=== PATIENT | female | born 1940 | race Caucasian/White ===

== ENCOUNTER → 2019-07-14 | Outpatient (CLI) | payer MEDICARE ==
[2019-07-14 10:30] LABS: African American GFR (CKD) >90 (>60 ml/min/1.73 sqM); Blood Urea Nitrogen 18 mg/dL (7-17)
--- NOTE | 2019-07-14 13:54 | CT ---
EXAMINATION TYPE: CT abdomen pelvis w con DATE OF EXAM: 07/14/2019 COMPARISON: NONE HISTORY: 79-year-old female Breast cancer, right upper quadrant TECHNIQUE: Contiguous axial scanning of the abdomen and pelvis following administration of 100 ml Iso lizy 300 IV contrast. Delayed images through the kidneys and coronal/sagittal reconstructions perform ed. CT DLP: 418.10 mGycm Automated exposure control for dose reduction was used. FINDINGS: Right breast reconstruction is demonstrated, partially visualized. Heart normal size without pericard ial effusion. Some strandy atelectasis or scarring at the posterior right base. No pleural effusion. Hepatic cysts measure up to 2.8 cm. Roughly 4 tiny hepatic hypodensities of the right hepatic dome ar e too small for accurate CT characterization and likely represent cysts as well. No biliary ductal dilatation. Portal venous system is patent. Adrenal glands, spleen, and pancreas appear within normal limits. A number of subcentimeter hypodensities within the left greater than right kidneys too small for accu rate CT characterization, likely cortical cysts. Bilateral extrarenal pelves. No dilated small bowel, free fluid, or free air. No mesenteric or retroperitoneal lymphadenopathy. Mild to moderate stool in the left side of the colon. Redundant sigmoid colon with scattered mid to d istal sigmoid diverticulosis. No pericolonic inflammatory change. Wandering cecum projecting medially and located just below the liver. Bladder urine distended. Prominent metal hardware artifact related to the patient's left hip replacem ent limits visualization of some of the pelvic structures. Uterus anteverted. Right ovary not clearly visualized. Possible thick-walled 1.6 cm cystic lesion of the left ovary can be further evaluated wi th a pelvic ultrasound. No abnormal fluid collection in the pelvis or pelvic lymphadenopathy. Bones: Left hip total arthroplasty. Degenerative changes right hip. Cortical irregularity left sacral alar suggests prior insufficiency fracture. Degenerative changes throughout the lumbar spine with gr davion 1 anterolisthesis at L4-L5. Focal 8 mm lucent lesion within the left L4 vertebral body. IMPRESSION: 1. BENIGN HEPATIC CYSTS MEASURING UP TO 2.8 CM. APPROXIMATELY 4 TINY HYPODENSITIES ARE PRESENT ALONG THE RIGHT HEPATIC DOME AND ARE TOO SMALL FOR ACCURATE CT CHARACTERIZATION, LIKELY REPRESENTING CYSTS WELL. 2. MID TO DISTAL SIGMOID DIVERTICULOSIS. REDUNDANT SIGMOID COLON. NO ACUTE INFLAMMATION. 3. NONSPECIFIC 8 MM LUCENT LESION WITHIN THE LEFT L4 VERTEBRAL BODY COULD REPRESENT A SMALL INTRAOSSE OUS HEMANGIOMA. IF THERE IS CLINICAL SUSPICION FOR LYTIC METASTATIC DISEASE, SHORT INTERVAL FOLLOW-UP VERSUS PET CT COULD BE CONSIDERED. 4. POSSIBLE THICK-WALLED 1.6 CM CYSTIC LESION OF THE LEFT OVARY CAN BE FURTHER EVALUATED WITH PELVIC ULTRASOUND. 5. OLD LEFT SACRAL ALAR INSUFFICIENCY FRACTURE.
== END | disposition home or self-care (01) ==
LOC: RADCTMAIN 09:38
PROVIDERS: ATTEND Internal Medicine Hematology & Oncology
DX: K57.30 Diverticulosis of large intestine without perforation or abscess without bleeding (principal); K76.89 Other specified diseases of liver; C50.411 Malignant neoplasm of upper-outer quadrant of right female breast
CPT/HCPCS: 82565; 84520; 74177; 36415; Q9967

== ENCOUNTER → 2019-10-20 | Outpatient (CLI) | payer MEDICARE ==
--- NOTE | 2019-10-21 14:45 | US ---
EXAMINATION TYPE: US transvaginal DATE OF EXAM: 10/20/2019 COMPARISON: ct CLINICAL HISTORY: N83.0 Ovarian Cyst. Left ovarian cyst seen on CT TECHNIQUE: Transvaginal (TV) . Transvaginal sonographic images of the pelvis were acquired. Pt edinson ble to fill bladder to do TA. EXAM MEASUREMENTS: Uterus: 6.2 x 3.4 x 4.3 cm Endometrial Stripe: 0.4 cm 1. Uterus: Anteverted Heterogeneous with 2 solid masses 1)= Echogenic, 2.9 x 1.9 x 2.9 cm 2)= Hyp oechoic at fundus, 1.5 x 1.1 x 1.5 cm findings are likely related to uterine fibroids. 2. Endometrium: wnl for post menopausal 3. Right Ovary: Obscured by overlying bowel gas 4. Left Ovary: Obscured by overlying bowel gas 5. Bilateral Adnexa: wnl, prominent vessels left adnexa 6. Posterior cul-de-sac: wnl IMPRESSION: 1. Uterine fibroids
== END ==
LOC: RADUSWWP 16:10
PROVIDERS: ATTEND Obstetrics & Gynecology
DX: D25.9 Leiomyoma of uterus, unspecified (principal)
CPT/HCPCS: 76830

== ENCOUNTER 2022-08-28 15:41 | Observation (INO) | payer MEDICARE ==
[2022-08-28] MEDS ORDERED: DEXAMETHASONE SOD PHOSPHATE 10 MG/ML 1 ML VIAL IV STA (16:58)
--- NOTE | 2022-08-28 16:59 | ED ---
General Adult HPI - General Chief complaint: Upper Respiratory Infection Stated complaint: sob, COVID+ Time Seen by Provider: 08/28/22 15:50 Source: EMS Mode of arrival: EMS Limitations: altered mental status - History of Present Illness Initial comments: Dictation was produced using [employer] dictation software. please excuse any grammatical, word or spelling errors. Chief Complaint: 82-year-old female sent from primary care physician's office for hypoxia and COVID-19 pneumonia History of Present Illness: Patient is a 2-year-old female she presents to the emergency Department directly from primary care physician's office for the last 3 days she's had cold type symptoms. Patient is a and O 1 at baseline. She was seen at the primary care physician's office or she tests positive for COVID- 19. She is also to be hypoxic. Level hypoxia was not mentioned to me. PCP was also worried about bacterial pneumonia. Patient is a poor historian. History of present also obtained from nurse who received report from EMS and also pat wendi's and son at the bedside. The ROS documented in this emergency department record has been reviewed and confirmed by me. Those systems with pertinent positive or negative responses have been documented in the HPI. All other systems are other negative and/or noncontributory. PHYSICAL EXAM: General Impression: Alert and oriented x1/4, not in acute distress HEENT: Normocephalic atraumatic, extra-ocular movements intact, pupils equal and reactive to light bilaterally, mucous membranes moist. Cardiovascular: Heart regular rate and rhythm Chest: Able to complete full sentences, no retractions, no tachypnea Abdomen: abdomen soft, non-tender, non-distended, no organomegaly Musculoskeletal: Pulses present and equal in all extremities, no peripheral edema Motor: no focal deficits noted Neurological: CN II-XII grossly intact, no focal motor or sensory deficits noted Skin: Intact with no visualized rashes Psych: Normal affect and mood ED course: 82-year-old female Covid positive with hypoxia presents to the ER from PCPs office for further care. Signs upon arrival shows 92% on room air. Repeat oxygen levels 89%. Nursing notes and chart review was performed Family does not want patient to be admitted to our hospital due to Covid visitor restrictions. My EKG interpretation: Ventricular rate 83, sinus rhythm,. 124, QRS 86, QTC 470. No CT prolongation, no QTC prolongation, no ST or T-wave changes noted. . Overall, this EKG is unremarkable Spelled in her [facility] who is not accepting any transfers. I relayed this information to family who was agreeable at patient admitted to our facility. Laboratory evaluation obtained. CBC, coag panel, metabolic panel is unremarkable. Patient is positive for COVID-19. Chest x-ray shows mild pulmonary interstitial basilar infiltrates likely COVID-19. Patient be admitted to [facility]. Patient given Decadron. Patient needed for hypoxic respiratory failure secondary to COVID-19. - Related Data Home Medications Medication Instructions Recorded Confirmed Anastrozole 1 mg PO DAILY 08/28/22 08/28/22 Citalopram Hydrobromide [CeleXA] 20 mg PO DAILY 08/28/22 08/28/22 Levothyroxine Sodium [Synthroid] 50 mcg PO DAILY 08/28/22 08/28/22 Memantine [Namenda] 5 mg PO DAILY 08/28/22 08/28/22 Omeprazole [PriLOSEC] 20 mg PO DAILY 08/28/22 08/28/22 Oxybutynin Chloride [Ditropan] 5 mg PO DAILY 08/28/22 08/28/22 Simvastatin [Zocor] 40 mg PO HS 08/28/22 08/28/22 amLODIPine [Norvasc] 5 mg PO DAILY 08/28/22 08/28/22 traZODone HCL [Desyrel] 25 - 50 mg PO HS 08/28/22 08/28/22 Allergies Allergy/AdvReac Type Severity Reaction Status Date / Time No Known Allergies Allergy Verified 08/28/22 18:08 Review of Systems ROS Statement: Those systems with pertinent positive or pertinent negative responses have been documented in the HPI. ROS Other: All systems not noted in ROS Statement are negative. Past Medical History Past Medical History: Unable to Obtain History of Any Multi-Drug Resistant Organisms: None Reported Past Surgical History: Unable to Obtain Past Psychological History: Unable to Obtain Smoking Status: Unknown if ever smoked Past Alcohol Use History: Unable to Obtain Past Drug Use History: Unable to Obtain General Exam Limitations: altered mental status Course Vital Signs 08/28/22 08/28/22 08/28/22 15:54 16:19 16:45 Temperature 98.4 F Pulse Rate 81 Respiratory 18 18 Rate Blood Pressure 132/78 O2 Sat by Pulse 92 L 89 L Oximetry 08/28/22 08/28/22 17:11 19:19 Temperature Pulse Rate 68 Respiratory 16 Rate Blood Pressure O2 Sat by Pulse 97 97 Oximetry Medical Decision Making - Lab Data Result diagrams: 08/28/22 16:54 08/28/22 16:54 Lab Results 08/28/22 08/28/22 08/28/22 Range/Units 16:54 16:54 16:54 WBC 13.0 H (3.8-10.6) k/uL RBC 4.47 (3.80-5.40) m/uL Hgb 13.7 (11.4-16.0) gm/dL Hct 39.6 (34.0-46.0) % MCV 88.6 (80.0-100.0) fL MCH 30.6 (25.0-35.0) pg MCHC 34.6 (31.0-37.0) g/dL RDW 13.0 (11.5-15.5) % Plt Count 129 L (150-450) k/uL MPV 9.9 Neutrophils % 87 % Lymphocytes % 3 % Monocytes % 9 % Eosinophils % 0 % Basophils % 1 % Neutrophils # 11.3 H (1.3-7.7) k/uL Lymphocytes # 0.4 L (1.0-4.8) k/uL Monocytes # 1.1 H (0-1.0) k/uL Eosinophils # 0.0 (0-0.7) k/uL Basophils # 0.1 (0-0.2) k/uL PT 11.5 (9.0-12.0) sec INR 1.1 (<1.2) APTT 29.3 (22.0-30.0) sec Sodium 136 L (137-145) mmol/L Potassium 3.8 (3.5-5.1) mmol/L Chloride 102 (98-107) mmol/L Carbon Dioxide 26 (22-30) mmol/L Anion Gap 8 mmol/L BUN 23 H (7-17) mg/dL Creatinine 0.85 (0.52-1.04) mg/dL Est GFR (CKD-EPI)AfAm 74 (>60 ml/min/1.73 sqM) Est GFR (CKD-EPI)NonAf 64 (>60 ml/min/1.73 sqM) Glucose 114 H (74-99) mg/dL Plasma Lactic Acid Jose Luis (0.7-2.0) mmol/L Calcium 9.0 (8.4-10.2) mg/dL Magnesium 1.8 (1.6-2.3) mg/dL Total Bilirubin 0.5 (0.2-1.3) mg/dL AST 32 (14-36) U/L ALT 22 (4-34) U/L Alkaline Phosphatase 52 (38-126) U/L Total Protein 7.0 (6.3-8.2) g/dL Albumin 4.3 (3.5-5.0) g/dL Influenza Type A (PCR) (Not Detectd) Influenza Type B (PCR) (Not Detectd) RSV (PCR) (Not Detectd) SARS-CoV-2 (PCR) (Not Detectd) 08/28/22 08/28/22 Range/Units 16:54 16:54 WBC (3.8-10.6) k/uL RBC (3.80-5.40) m/uL Hgb (11.4-16.0) gm/dL Hct (34.0-46.0) % MCV (80.0-100.0) fL MCH (25.0-35.0) pg MCHC (31.0-37.0) g/dL RDW (11.5-15.5) % Plt Count (150-450) k/uL MPV Neutrophils % % Lymphocytes % % Monocytes % % Eosinophils % % Basophils % % Neutrophils # (1.3-7.7) k/uL Lymphocytes # (1.0-4.8) k/uL Monocytes # (0-1.0) k/uL Eosinophils # (0-0.7) k/uL Basophils # (0-0.2) k/uL PT (9.0-12.0) sec INR (<1.2) APTT (22.0-30.0) sec Sodium (137-145) mmol/L Potassium (3.5-5.1) mmol/L Chloride (98-107) mmol/L Carbon Dioxide (22-30) mmol/L Anion Gap mmol/L BUN (7-17) mg/dL Creatinine (0.52-1.04) mg/dL Est GFR (CKD-EPI)AfAm (>60 ml/min/1.73 sqM) Est GFR (CKD-EPI)NonAf (>60 ml/min/1.73 sqM) Glucose (74-99) mg/dL Plasma Lactic Acid Jose Luis 1.4 (0.7-2.0) mmol/L Calcium (8.4-10.2) mg/dL Magnesium (1.6-2.3) mg/dL Total Bilirubin (0.2-1.3) mg/dL AST (14-36) U/L ALT (4-34) U/L Alkaline Phosphatase (38-126) U/L Total Protein (6.3-8.2) g/dL Albumin (3.5-5.0) g/dL Influenza Type A (PCR) Not Detected (Not Detectd) Influenza Type B (PCR) Not Detected (Not Detectd) RSV (PCR) Not Detected (Not Detectd) SARS-CoV-2 (PCR) Detected A (Not Detectd) Disposition Clinical Impression: Hypoxia, COVID-19 Disposition: ADMITTED IP TO THIS HOSP Condition: Fair Referrals: None,Stated [Primary Care Provider] - 1-2 days Decision Time: 19:48
[2022-08-28 17:16] LABS: Basophils # (A) 0.1 k/uL (0-0.2); Basophils % (A) 1 %; Eosinophils % (A) 0 %; HCT 39.6 % (34.0-46.0); HGB 13.7 gm/dL (11.4-16.0); Lymphocytes # (A) 0.4 k/uL (1.0-4.8); Lymphocytes % (A) 3 %; MCH 30.6 pg (25.0-35.0); MCHC 34.6 g/dL (31.0-37.0); MCV 88.6 fL (80.0-100.0); Mean Platelet Volume 9.9; Monocytes # (A) 1.1 k/uL (0-1.0); Monocytes % (A) 9 %; Neutrophils # (A) 11.3 k/uL (1.3-7.7); Neutrophils % (A) 87 %; Platelet Count 129 k/uL (150-450); RBC 4.47 m/uL (3.80-5.40)
[2022-08-28 17:28] LABS: Albumin 4.3 g/dL (3.5-5.0); Magnesium 1.8 mg/dL (1.6-2.3); Potassium 3.8 mmol/L (3.5-5.1); Total Bilirubin 0.5 mg/dL (0.2-1.3)
[2022-08-28 17:29] LABS: INR 1.1 (<1.2); Partial Thromboplastin Time 29.3 sec (22.0-30.0); Prothrombin Time 11.5 sec (9.0-12.0)
--- NOTE | 2022-08-28 17:59 | XR ---
EXAMINATION TYPE: XR chest 2V DATE OF EXAM: 08/28/2022 COMPARISON: NONE HISTORY: Short of breath TECHNIQUE: 2 views FINDINGS: There is some mild interstitial infiltrate at the lung bases. Heart size is normal. No hear t failure. There are chest leads. Bony thorax is intact. IMPRESSION: There is some mild pulmonary interstitial basilar infiltrates. No obvious heart failure.
[2022-08-28] MEDS ORDERED: NALOXONE 0.4 MG/ML 1 ML VIAL IV PRN (19:45)
[2022-08-28] MEDS ORDERED: ACETAMINOPHEN TAB 325 MG TAB PO PRN (19:45)
[2022-08-28] MEDS: SODIUM CHLORIDE 0.9% 1,000 ML IV SCH (19:56)
--- NOTE | 2022-08-28 21:47 | CT ---
EXAMINATION TYPE: CT chest angio for PE DATE OF EXAM: 08/28/2022 COMPARISON: None HISTORY: Rule out PE. dyspnea CT DLP: 267.4 mGycm Automated exposure control for dose reduction was used. CONTRAST: Performed with IV Contrast, patient injected with 100ml mL of Isovue 370. Images obtained from the thoracic inlet to the diaphragm with the IV contrast. There are Three-D post processed images. There is bilateral lower lobe pulmonary airspace infiltrate and atelectasis. No pleural effusion. The re are rounded hypodensities in the liver that measure up to 2.3 cm and consistent with cysts that ar e not changed compared to CT scan of 07/14/2019. Heart is top normal in size. No pericardial effusion. There is no mediastinal adenopathy. There are n o hilar masses. There is some mucous plugging in the left lower lobe. No evidence of filling defect i n the pulmonary arteries. Thoracic vertebra show fairly normal alignment. There is T12 anterior wedging 25% that appears old. IMPRESSION: No evidence of pulmonary embolism. Bilateral lower lobe pulmonary infiltrates and atelectasis with mucous plugging left lower lobe. Ther e is T12 compression fracture which appears old but is a change compared to 07/14/2019 CT scan.
[2022-08-28] MEDS: ATORVASTATIN 20 MG TAB PO SCH (22:35)
--- NOTE | 2022-08-29 00:44 | P.HPIM ---
History of Present Illness H&P Date: 08/28/22 Chief Complaint: hypoxemia, covid positive 82 year old female with hypertension , hypothyroid patient AXOX1 , at baseline with dementia , unable to provide any history from chart review, patient was sent in from PCP office, she was there with her for evaluation , when she was found hypoxic and tested positive for covid. upon arrival she was hypoxic 88-89% on room air, improved with supplemental oxygen WBC 13, platelet 129 CXR mild interstitial infilterates, EKG showed a pattern of S1Q3T3 D-dimer positive 2.91 CTA of the chest negative for acute PE no other history available at this time Review of Systems ROS unobtainable: due to mental status Past Medical History Past Medical History: Unable to Obtain History of Any Multi-Drug Resistant Organisms: None Reported Past Surgical History: Unable to Obtain Past Psychological History: Unable to Obtain Smoking Status: Unknown if ever smoked Past Alcohol Use History: Unable to Obtain Past Drug Use History: Unable to Obtain - Past Family History family Family Medical History: Unable to Obtain Medications and Allergies Home Medications Medication Instructions Recorded Confirmed Type Anastrozole 1 mg PO DAILY 08/28/22 08/28/22 History Citalopram Hydrobromide [CeleXA] 20 mg PO DAILY 08/28/22 08/28/22 History Levothyroxine Sodium [Synthroid] 50 mcg PO DAILY 08/28/22 08/28/22 History Memantine [Namenda] 5 mg PO DAILY 08/28/22 08/28/22 History Omeprazole [PriLOSEC] 20 mg PO DAILY 08/28/22 08/28/22 History Oxybutynin Chloride [Ditropan] 5 mg PO DAILY 08/28/22 08/28/22 History Simvastatin [Zocor] 40 mg PO HS 08/28/22 08/28/22 History amLODIPine [Norvasc] 5 mg PO DAILY 08/28/22 08/28/22 History traZODone HCL [Desyrel] 25 - 50 mg PO HS 08/28/22 08/28/22 History Allergies Allergy/AdvReac Type Severity Reaction Status Date / Time No Known Allergies Allergy Verified 08/28/22 18:08 Physical Exam Vitals: Vital Signs Temp Pulse Resp BP Pulse Ox 08/28/22 19:19 68 16 97 08/28/22 17:11 97 08/28/22 16:45 89 L 08/28/22 16:19 18 08/28/22 15:54 98.4 F 81 18 132/78 92 L Intake and Output 08/28/22 08/28/22 08/28/22 06:59 14:59 22:59 Other: Weight 56.699 kg Constitutional: No acute distress , confused Eyes: Anicteric sclerae, moist conjunctiva, Pupils equal round reactive to light ENMT: NC/AT resists opening mouth Neck: Supple, FROM, no masses, or JVD No carotid bruits No thyromegaly Lungs: inspiratory rales at lung bases Clear to percussion Normal respiratory effort, no accessory muscle use Cardiovascular: Heart regular in rate and rhythm, No murmurs, gallops, or rubs No peripheral edema Abdominal: Soft Nontender, no guarding, rebound or rigidity Abdomen moving with respiration Normoactive bowel sounds No hepatomegaly, No splenomegaly No palpable mass Skin: Normal temperature, tone, texture, turgor Extremities: No digital cyanosis No clubbing Pedal pulses intact and symmetrical Radial pulses intact and symmetrical No calf tenderness Psychiatric: sleeping easily arousable , does not answer any questions Neuro unable to perform Lymphatics: no palpable cervical or supraclavicular , or inguinal lymph nodes Results CBC & Chem 7: 08/28/22 16:54 08/28/22 16:54 Labs: Abnormal Lab Results - Last 24 Hours (Table) 08/28/22 08/28/22 08/28/22 Range/Units 16:54 16:54 16:54 WBC 13.0 H (3.8-10.6) k/uL Plt Count 129 L (150-450) k/uL Neutrophils # 11.3 H (1.3-7.7) k/uL Lymphocytes # 0.4 L (1.0-4.8) k/uL Monocytes # 1.1 H (0-1.0) k/uL Sodium 136 L (137-145) mmol/L BUN 23 H (7-17) mg/dL Glucose 114 H (74-99) mg/dL SARS-CoV-2 (PCR) Detected A (Not Detectd) Assessment and Plan Assessment: acute hypoxic respiratory failure COVID pneumonia mild thrombocytopenia leukocytosis plan supportive care CTA of the chest no acute PE , elevated d dimer , most likely secondary to COVID infection check prognostic labs for covid dexamethasone daily pulmonary consult supplemental oxygen as needed droplet precautions resume home meds , hypertension and hypothyroid full code DVT PPX lovenox sc
[2022-08-29] MEDS: ALBUTEROL HFA INHALER INHALATION PRN ×2 (09:21→12:36)
[2022-08-29] MEDS: ENOXAPARIN 40 MG/0.4 ML SYRINGE SQ SCH (10:20)
[2022-08-29] MEDS: CITALOPRAM HYDROBROMIDE 20 MG TAB PO SCH (10:20)
[2022-08-29] MEDS: amLODIPine 5 MG TAB PO SCH (10:20)
[2022-08-29] MEDS: PANTOPRAZOLE 40 MG TABLET PO SCH (10:20)
[2022-08-29] MEDS: DEXAMETHASONE SOD PHOSPHATE 10 MG/ML 1 ML VIAL IV SCH (10:20)
[2022-08-29] MEDS: MEMANTINE 5 MG TAB PO SCH (10:20)
[2022-08-29] MEDS: ANASTROZOLE 1 MG TAB PO SCH (10:21)
[2022-08-29] MEDS: LEVOTHYROXINE 50 MCG TAB PO SCH (10:21)
[2022-08-29] MEDS: OXYBUTYNIN CHLORIDE 5 MG TAB PO SCH (10:21)
--- NOTE | 2022-08-29 14:50 | P.PN ---
Subjective Progress Note Date: 08/29/22 Principal diagnosis: covid Patient not able to provide any history, she was yelling that she was cold when she was awaken this am. No overnight issues. Objective - Vital Signs Vital signs: Vital Signs Temp 97.5 F L 08/29/22 08:04 Pulse 55 L 08/29/22 08:04 Resp 18 08/29/22 08:04 BP 115/62 08/29/22 08:04 Pulse Ox 94 L 08/29/22 08:04 FiO2 Intake & Output 08/28/22 08/29/22 08/29/22 18:59 06:59 18:59 Intake Total 180 Balance 180 Weight 56.699 kg 56.699 kg Intake: Oral 180 Other: # Voids 1 - Exam Constitutional: No acute distress Eyes:Anicteric sclerae, moist conjunctiva, no lid-lag, PERRLA, ENMT: Oropharynx clear, no erythema, exudates Neck: Supple, FROM, no masses, or JVD, No carotid bruits, No thyromegaly Lungs: Clear to auscultation, Clear to percussion, Normal respiratory effort, no accessory muscle use Cardiovascular: Heart regular in rate and rhythm, No murmurs, gallops, or rubs, No peripheral edema Abdominal: Soft, Nontender, no guarding, rebound or rigidity, Normoactive bowel sounds, No hepatomegaly, No splenomegaly, No palpable mass Skin: Normal temperature, tone, texture, turgor, no induration, No subcutaneous nodules, No rash, lesions, No ulcers Extremities: No digital cyanosis, No clubbing, Pedal pulses intact and symmetrical, Radial pulses intact and symmetrical, No calf tenderness Neuro: unable to perform, moving all extremities. Lymphatics: no palpable cervical or supraclavicular , or inguinal lymph nodes - Labs CBC & Chem 7: 08/28/22 16:54 08/28/22 16:54 Labs: Abnormal Lab Results - Last 24 Hours (Table) 08/28/22 08/28/22 08/28/22 Range/Units 16:54 16:54 16:54 WBC 13.0 H (3.8-10.6) k/uL Plt Count 129 L (150-450) k/uL Neutrophils # 11.3 H (1.3-7.7) k/uL Lymphocytes # 0.4 L (1.0-4.8) k/uL Monocytes # 1.1 H (0-1.0) k/uL D-Dimer (<0.60) mg/L FEU Sodium 136 L (137-145) mmol/L BUN 23 H (7-17) mg/dL Glucose 114 H (74-99) mg/dL SARS-CoV-2 (PCR) Detected A (Not Detectd) 08/28/22 Range/Units 16:54 WBC (3.8-10.6) k/uL Plt Count (150-450) k/uL Neutrophils # (1.3-7.7) k/uL Lymphocytes # (1.0-4.8) k/uL Monocytes # (0-1.0) k/uL D-Dimer 2.91 H (<0.60) mg/L FEU Sodium (137-145) mmol/L BUN (7-17) mg/dL Glucose (74-99) mg/dL SARS-CoV-2 (PCR) (Not Detectd) Assessment and Plan Plan: Acute hypoxic respiratory failure COVID pneumonia mild thrombocytopenia leukocytosis Supportive care CTA of the chest no acute PE dexamethasone daily pulmonary consult supplemental oxygen as needed droplet precautions hypertension and hypothyroid resume home meds full code DVT PPX lovenox sc
[2022-08-29] MEDS: ATORVASTATIN 20 MG TAB PO SCH (22:39)
[2022-08-30] MEDS: SODIUM CHLORIDE 0.9% 1,000 ML IV SCH (04:17)
[2022-08-30] MEDS: LEVOTHYROXINE 50 MCG TAB PO SCH (06:57)
[2022-08-30] MEDS: PANTOPRAZOLE 40 MG TABLET PO SCH (06:57)
[2022-08-30 08:02] VITALS: BP 143/84; PULSE 57; RESP 18; TEMP 98
[2022-08-30] MEDS: ALBUTEROL HFA INHALER INHALATION PRN ×2 (08:20→11:27)
[2022-08-30 08:56] LABS: Basophils # (A) 0.01 X 10*3/uL (0.00-0.10); Basophils % (A) 0.1 %; Eosinophils # (A) 0 X 10*3/uL (0.04-0.35); Eosinophils % (A) 0 %; HCT 36.7 % (37.2-46.3); HGB 12.6 g/dL (12.0-15.0); Immature Grans, Automated 0.5 %; Lymphocytes # (A) 0.66 X 10*3/uL (0.90-5.00); Lymphocytes % (A) 5.1 %; MCH 29.5 pg (27.0-32.0); MCHC 34.3 g/dL (32.0-37.0); MCV 85.9 fL (80.0-97.0); Mean Platelet Volume 11.8 fL (9.5-12.2); Monocytes # (A) 0.89 X 10*3/uL (0.20-1.00); Monocytes % (A) 6.8 %; NRBC Per 100 WBC 0 /100 WBCS (0.0-0.0); Neutrophils % (A) 87.5 %; Platelet Count 142 X 10*3/uL (140-440); RBC 4.27 X 10*6/uL (4.10-5.20); RDW 13.7 % (11.5-14.5); WBC 13.02 X 10*3/uL (4.50-10.00)
[2022-08-30] MEDS: DEXAMETHASONE SOD PHOSPHATE 10 MG/ML 1 ML VIAL IV SCH (09:18)
[2022-08-30 10:28] LABS: African American GFR (CKD) 74.9 (60.0-200.0); Albumin 3.8 g/dL (3.8-4.9); Albumin/Globulin Ratio 1.72 (1.60-3.17); Anion Gap 13.4 mmol/L (10.00-18.00); BUN/Creat Ratio 47.68 Ratio (12.00-20.00); Blood Urea Nitrogen 40.1 mg/dL (9.0-27.0); Calcium 9.2 mg/dL (8.7-10.3); Carbon Dioxide 21.1 mmol/L (20.0-27.5); Globulin 2.2 g/dL (1.6-3.3); Magnesium 2.3 mg/dL (1.5-2.4); Non-African American GFR(CKD) 64.6 (60.0-200.0); Potassium 3.6 mmol/L (3.5-5.5); Total Bilirubin 0.3 mg/dL (0.30-1.20); Total Protein 6.1 g/dL (6.2-8.2)
--- NOTE | 2022-08-30 11:40 | P.DS ---
Providers Date of admission: 08/28/22 19:45 Expected date of discharge: 08/30/22 Attending physician: Tatyana Angel MD Primary care physician: Stated None Hospital Course: 82 year old female with hypertension , hypothyroidism, hx of dementia A&OX1 at baseline , unable to provide any history who went to her PCP for cold like symptoms. Her primary care physician to set her up for Covid and she came back positive. She was also noted to be hypoxic. Upon arrival to the ER she was hypoxic 88-89% on room air, improved with supplemental oxygen 2L to 93%. Laboratory evaluation revealed WBC 13, platelet 129. CXR mild interstitial infilterates, EKG showed a pattern of S1Q3T3 D-dimer positive 2.91. CTA of the chest negative for acute PE but showed bilateral lower lobe infiltrates, atelectasis with mucous plugging in the left lower lobe. Patient was subsequently admitted. She was started on steroids and bronchodilators. Oxygen requirements improved with treatment. She is currently on room air. She is currently at her baseline. She will be discharged home in stable condition. She was seen in [id number] on the day of discharge 08/30 Time for discharge 35 minutes. Patient Condition at Discharge: Fair Plan - Discharge Summary New Discharge Prescriptions: Continue traZODone HCL [Desyrel] 25 - 50 mg PO HS Levothyroxine Sodium [Synthroid] 50 mcg PO DAILY Simvastatin [Zocor] 40 mg PO HS Oxybutynin Chloride [Ditropan] 5 mg PO DAILY Omeprazole [PriLOSEC] 20 mg PO DAILY Memantine [Namenda] 5 mg PO DAILY Citalopram Hydrobromide [CeleXA] 20 mg PO DAILY Anastrozole 1 mg PO DAILY amLODIPine [Norvasc] 5 mg PO DAILY Discharge Medication List Anastrozole 1 mg PO DAILY 08/28/22 [History] Citalopram Hydrobromide [CeleXA] 20 mg PO DAILY 08/28/22 [History] Levothyroxine Sodium [Synthroid] 50 mcg PO DAILY 08/28/22 [History] Memantine [Namenda] 5 mg PO DAILY 08/28/22 [History] Omeprazole [PriLOSEC] 20 mg PO DAILY 08/28/22 [History] Oxybutynin Chloride [Ditropan] 5 mg PO DAILY 08/28/22 [History] Simvastatin [Zocor] 40 mg PO HS 08/28/22 [History] amLODIPine [Norvasc] 5 mg PO DAILY 08/28/22 [History] traZODone HCL [Desyrel] 25 - 50 mg PO HS 08/28/22 [History] Follow up Appointment(s)/Referral(s): Eula Lemus DO [REFERRING] - As Needed
[2022-08-30] MEDS: ENOXAPARIN 40 MG/0.4 ML SYRINGE SQ SCH (11:49)
[2022-08-30] MEDS: ANASTROZOLE 1 MG TAB PO SCH (11:50)
[2022-08-30] MEDS: MEMANTINE 5 MG TAB PO SCH (11:50)
[2022-08-30] MEDS: OXYBUTYNIN CHLORIDE 5 MG TAB PO SCH (11:50)
[2022-08-30] MEDS: amLODIPine 5 MG TAB PO SCH (11:50)
[2022-08-30] MEDS: CITALOPRAM HYDROBROMIDE 20 MG TAB PO SCH (11:50)
== END 2022-08-30 13:19 | disposition home or self-care (01) ==
LOC: EC 15:41 → 4SSUR 19:45
PROVIDERS: ADMIT Internal Medicine; ATTEND Internal Medicine
DX: U07.1 COVID-19 (principal); J12.82 Pneumonia due to coronavirus disease 2019; J96.01 Acute respiratory failure with hypoxia; J98.11 Atelectasis; D69.6 Thrombocytopenia, unspecified; I10 Essential (primary) hypertension; E03.9 Hypothyroidism, unspecified; F03.90 Unspecified dementia, unspecified severity, without behavioral disturbance, psychotic disturbance, mood disturbance, and anxiety; Z79.890 Hormone replacement therapy; Z79.899 Other long term (current) drug therapy
CPT/HCPCS: 96376 ×2; 96372 ×2; 96374; 99285; 36415; 94640 ×4; 93005 ×2; 85379; 80053 ×2; 83605; 83735 ×2; 85025 ×2; 85610; 85730; 87636; 71046; 71275; G0378 ×3; J1100 ×3; J1650 ×2; S0170 ×2; Q9967